=== PATIENT | male | born 1985 | race Caucasian/White ===

== ENCOUNTER 2023-10-02 12:35 | Emergency (ER) | payer OTHER, SELFPAY ==
--- NOTE | ~2023-10-02 | CT_ITS ---
EXAMINATION: CT abdomen pelvis wo con DATE: 10/02/2023 14:22 INDICATION: Left flank pain. Hematuria. TECHNIQUE: Computed tomography (CT) of the abdomen and pelvis was performed without intravenous contr ast. Automated exposure control and iterative reconstruction technique were employed. The dose-length product was 390.65 mGy-cm. COMPARISON: None. FINDINGS: The visualized portions of the lung bases demonstrate mild atelectasis. No pleural effusion . The heart size is normal. No pericardial effusion. The liver, gallbladder, spleen, pancreas, adrena l glands, and right kidney are normal. There is mild left hydronephrosis and hydroureter. There is a 4 mm stone at left ureterovesicular junction. There are no dilated loops of bowel. The appendix is no rmal. There are no pathologically enlarged lymph nodes. There is no free intraperitoneal fluid. There is mild chronic anterior wedging of L1 vertebral body. IMPRESSION: 1. 4 mm stone at left ureterovesicular junction with mild left hydronephrosis and hydroureter. Reviewed, dictated and finalized at location A. IMPRESSION: 1. 4 mm stone at left ureterovesicular junction with mild left hydronephrosis a nd hydroureter.
[2023-10-02 12:47] VITALS: BP 142/97; PULSE 68; RESP 22; TEMP 36.7; O2SAT 100
--- NOTE | 2023-10-02 13:01 | ED.BACK ---
HPI - Back Pain/Injury General Chief Complaint: Back Pain/Injury Stated Complaint: left flank pain Time Seen by Provider: 10/02/23 12:48 History of Present Illness HPI Narrative: 37-year-old male presenting to the emergency department for evaluation for acute onset of left flank pain. Patient states the pain did start this morning. Patient may have had a subtle back injury yesterday when he slipped while walking on a wet floor but did not fall. Patient states at that time he felt like he tweaked his groin rather than his back. Patient woke up this morning he was not having immediate pain but after about an hour or so he noticed the left flank pain. Patient states the pain does sometimes radiate around to the left lower quadrant. Patient does have associated nausea and vomiting. At time of evaluation patient was pacing around the room. Patient denies any prior history of ureteral calculi. Related Data Allergies Allergy/AdvReac Type Severity Reaction Status Date / Time No Known Allergies Allergy Verified 10/02/23 13:14 Review of Systems Review of Systems: All systems reviewed & are unremarkable except as noted in HPI and below Exam Narrative: APPEARANCE: Uncomfortable appearing on initial exam HEAD: normocephalic, atraumatic. EYES: PERRLA/EOMI, conjunctivae clear. NOSE: Normal no drainage EARS:TMS clear with good light reflex. THROAT: Pharynx clear, no exudate. NECK: Supple. No adenopathy, no masses. RESPIRATORY: Airway patent, respirations nonlabored. Clear to auscultation bilaterally, no rales, rhonchi, wheezing. CARDIOVASCULAR: Regular rate and rhythm without murmurs rubs or gallops. ABDOMINAL: Left CVA tenderness to palpation, left lower quadrant tenderness MUSCULOSKELETAL: Moves all extremities. Strength/ROM intact, No edema, No calf tenderness. NEURO: Alert. Cranial nerves II through XII intact. Good gait. Good coordination SKIN: Warm, dry. Normal Color Course Course Emergency Course: Patient was improved with treatment and was comfortable plan for discharge and follow-up with Urology. Vital Signs Vital signs: Vital Signs Temperature 98.1 F 10/02/23 12:47 Pulse Rate 68 10/02/23 12:47 Respiratory Rate 22 H 10/02/23 12:47 Blood Pressure 142/97 H 10/02/23 12:47 Pulse Oximetry 100 10/02/23 12:47 Oxygen Delivery Room Air 10/02/23 12:47 Temperature 98.1 F 10/02/23 12:47 Pulse Rate 64 10/02/23 15:45 Respiratory Rate 20 10/02/23 15:45 Blood Pressure 147/93 H 10/02/23 15:45 Pulse Oximetry 100 10/02/23 15:45 Oxygen Delivery Room Air 10/02/23 12:47 MDM - Back Pain/Injury MDM Narrative Medical decision making narrative: 37-year-old male present to the emergency department for evaluation for flank pain. Patient is afebrile but does have a leukocytosis of 18.2 with normal hemoglobin of 15.8. Patient was and significant discomfort when he arrived this is possibly reactive. Urine was positive for ketones and blood but negative for evidence of urinary tract infection. CT abdomen pelvis without contrast was ordered due to suspicion of kidney stone and did show 4 mm stone at left ureterovesicular junction with mild left hydronephrosis and hydroureter. Patient's pain was significantly improved with IV Dilaudid. Patient was also treated with p.o. Flomax and 50 mg of IV Toradol. Patient family were updated on the results of the workup and diagnosis. There also updated on the treatment plan for home. Patient will be discharged home with Flomax, Zofran, May. Differential Diagnosis Differential diagnosis: Likely sciatica, strain of lumbar region, renal colic and pyelonephritis Lab Data Attestation: I reviewed the patient's lab results. 10/02/23 13:09 10/02/23 13:09 Labs: Lab Results 10/02/23 Range/Units 13:09 WBC 18.2 H (4.5-10.0) K/mm3 RBC 5.15 (4.6-6.20) M/mm3 Hgb 15.8 (14.0-18.0) g/dL Hct 46.1 (42.0-52.0) % MCV 89.5 (8
[2023-10-02] MEDS: ONDANSETRON INJ 4 MG/2 ML VIAL IV PUSH (13:14)
[2023-10-02] MEDS: SODIUM CHLORIDE 0.9% IV 1,000 ML 999 ML IV CONT (13:14)
[2023-10-02] MEDS: HYDROmorphone HCL INJ (*CRX) 1 MG/ML SYR IV PUSH ×2 (13:15→13:54)
[2023-10-02 13:17] LABS: Basophils Absolute Auto 0.1 K/mm3 (0.0-0.1); Basophils Percent Auto 0.4 % (0.2-1.2); Eosinophils Percent Auto 0.1 % (0-4.4); Hematocrit 46.1 % (42.0-52.0); Hemoglobin 15.8 g/dL (14.0-18.0); Immature Granulocyte Absolute 0.06 K/mm3 (0.00-0.031); Immature Granulocyte Percent A 0.3 % (0-0.5); Lymphocytes Absolute Auto 1.22 K/mm3 (0.9-3.2); Lymphocytes Percent Auto 6.7 % (18.3-44.2); Mean Corpuscular HGB Conc 34.3 g/dl (32-36); Mean Corpuscular Hemoglobin 30.7 pg (26-34); Mean Corpuscular Volume 89.5 fl (80-100); Mean Platelet Volume 10.2 fl (7.4-10.4); Monocytes Absolute Auto 1.1 K/mm3 (0.1-0.6); Monocytes Percent Auto 6.3 % (2.6-8.5); Neutrophils Absolute Auto 15.7 K/mm3 (1.3-6.7); Neutrophils Percent Auto 86.2 % (45.5-73.1); Platelet Count Result 272 k/mm3 (150-375); Red Blood Count 5.15 M/mm3 (4.6-6.20); Red Cell Distribution Width 12.3 % (11.5-14.5); White Blood Count 18.2 K/mm3 (4.5-10.0)
--- NOTE | 2023-10-02 13:39 | PC.NURSE ---
Dr. Khan notified of pt being a moderate risk on columbia scale. No further actions needed per
[2023-10-02 13:42] LABS: Alanine Aminotransferase 38 U/L (6-50); Albumin Level 4.7 g/dL (3.5-5.1); Alkaline Phosphatase 76 U/L (38-126); Anion Gap 11 mmol/L (4-12); Aspartate Amino Transferase 27 U/L (17-59); Bilirubin,Total 0.5 mg/dL (0.2-1.3); Blood Urea Nitrogen 12 mg/dL (9-20); Calcium 9.3 mg/dL (8.4-10.2); Carbon Dioxide 25 mmol/L (22-30); Chloride 103 mmol/L (98-107); Estimated CRCL calculation 69 ml/min; Estimated Glomerular Filt Rate > 60; Glucose 138 mg/dL (65-110); Potassium 3.8 mmol/L (3.4-5.0); Sodium 139 mmol/L (137-145)
[2023-10-02 13:45] LABS: Add Urine Microscopic? YES; Appearance Urine Clear (Clear); Bacteria Urine None Seen /hpf; Bilirubin Urine Negative (Negative); Blood Urine 3+ (Negative); Color Urine Dark Yellow (Yellow); Glucose Urine UA Negative (Negative); Ketones Urine Trace mg/dL (Negative); Leukocyte Esterase Ur Negative LEU/UL (Negative); Need Manual Microscopic Reviewed; Nitrate Urine Negative (Negative); Protein Urine 1+ mg/dL (Negative); RBC Urine 21-50 /hpf (0-2); Specific Grav Ur 1.032 (1.001-1.035); Squamous Epithelial Cell Urine None Seen /hpf (Few); WBC Urine 0-5 /hpf (0-3)
[2023-10-02] MEDS: KETOROLAC 15 MG/ML VIAL (*BKC) IV PUSH (14:52)
[2023-10-02] MEDS: TAMSULOSIN HCL 0.4 MG CAPSULE PO (15:38)
[2023-10-02] MEDS: HYDROcodone/acetaminophen (*CRX) 5-325 MG TABLET 1 TAB PO (15:38)
[2023-10-02 15:45] VITALS: BP 147/93; PULSE 64; RESP 20; O2SAT 100
== END 2023-10-02 15:47 | disposition home or self-care (01) ==
PROVIDERS: Emergency Provider Emergency Medicine
DX: N13.2 Hydronephrosis with renal and ureteral calculous obstruction (principal)
CPT/HCPCS: 36415; 74176; 80053; 81001; 85025; 96361; 96374; 96375; 96376; 99284; A9270; J1170; J1885; J2405; J7030